=== PATIENT | male | born 1965 | race Caucasian/White ===

== ENCOUNTER 2017-10-24 17:15 | Emergency (ER) | payer MEDICARE, MEDICAID ==
[~2017-10-24] VITALS: Ht 170.2 cm; Wt 68.2 kg
[~2017-10-24 17:15] MED LIST: BENZ0.5T43 PO; LEVO750T21 PO; OLAN2.5T3 PO; OMEP10CA4 PO; QUET-1 PO; ZOL50T PO
[2017-10-24 17:19] VITALS: BP 122/68
[2017-10-24 18:23] LABS: BASOPHILS % (AUTO) 0.2 % (0-1); EOSINOPHILS # (AUTO) 0.1 X10'3 (0-0.9); EOSINOPHILS % (AUTO) 1.2 % (0-6); HEMATOCRIT 37.8 % (42.0-52.0); HEMOGLOBIN 12.7 g/dl (14.0-17.9); LYMPHOCYTES # (AUTO) 0.8 X10'3 (1.1-4.8); LYMPHOCYTES % (AUTO) 13.4 % (21-51); MEAN CORPUSCULAR HEMOGLOBIN 30.8 PG (27.0-31.0); MEAN CORPUSCULAR HGB CONC 33.6 % (33.0-36.5); MEAN CORPUSCULAR VOLUME 91.8 FL (78-98); MONOCYTES # (AUTO) 0.7 X10'3 (0-0.9); MONOCYTES % (AUTO) 11.3 % (2-12); NEUTROPHILS # (AUTO) 4.4 X10'3 (1.8-7.7); NEUTROPHILS % (AUTO) 73.9 % (42-75); PLATELET COUNT 250 X10'3 (140-440); RED BLOOD COUNT 4.11 X10'6 (4.70-6.10); RED CELL DISTRIBUTION WIDTH 13.7 % (11.5-14.5)
[2017-10-24 18:49] LABS: ALANINE AMINOTRANSFERASE 23 U/L (12-78); ALBUMIN 2.8 G/DL (3.4-5.0); ALBUMIN/GLOBULIN RATIO 0.8 (1.1-1.5); ALKALINE PHOSPHATASE 71 IU/L (46-116); ANION GAP 5 (8-16); ASPARTATE AMINO TRANSFERASE 26 U/L (10-37); BILIRUBIN,TOTAL 0.2 MG/DL (0.1-1.0); BLOOD UREA NITROGEN 14 MG/DL (7-18); BUN/CREATININE RATIO 17.5 (5.4-32.0); CHLORIDE 103 MMOL/L (99-107); ETHANOL < 0.010 GM/DL (0.0-0.010); GLUCOSE 141 MG/DL (70-104); POTASSIUM 3.8 MMOL/L (3.5-5.1); SODIUM 136 MMOL/L (135-145); TOTAL CARBON DIOXIDE 28.4 MMOL/L (24-32); TOTAL PROTEIN 6.3 G/DL (6.4-8.2); eGFR > 90 ML/MIN
== END 2017-10-24 19:43 | disposition left against medical advice (07) ==
LOC: ER 17:16
DX: F32.9 Major depressive disorder, single episode, unspecified (principal); F15.10 Other stimulant abuse, uncomplicated; F17.210 Nicotine dependence, cigarettes, uncomplicated; Z90.49 Acquired absence of other specified parts of digestive tract; Z93.3 Colostomy status; Z88.1 Allergy status to other antibiotic agents; Z88.8 Allergy status to other drugs, medicaments and biological substances; Z59.0 Homelessness
CPT/HCPCS: 36415; 80053; 80320; 84443; 85025; 99284

== ENCOUNTER 2017-11-22 11:53 | Inpatient (IN) | payer MEDICARE, MEDICAID ==
[~2017-11-22] VITALS: Ht 170.2 cm; Wt 67.8 kg
[2017-11-22] MEDS ORDERED: acetaminophen 325mg tablet PO PRN ×2 (12:40)
[2017-11-22] MEDS ORDERED: magnesium hydroxide 30ml (MOM) UD suspension PO PRN (12:40)
[2017-11-22] MEDS ORDERED: mag hydrox/Alum hydrox/simeth 30ml oral suspension PO PRN (12:40)
[2017-11-22] MEDS ORDERED: pneumococcal 23-VAL P-sac vacc 25 mcg/0.5ml vial IMVAC ONE (14:05)
[2017-11-22] MEDS ORDERED: FLU VACC QS2017-18 36MOS UP/PF 60 MCG/0.5 ML SYRINGE IMVAC ONE (14:10)
[2017-11-22 19:18] VITALS: BP 125/82
[2017-11-22] MEDS ORDERED: OLANZapine 5mg rapidly disint. tablet PO ONE (21:25)
[2017-11-22] MEDS ORDERED: LORazepam 1 MG tablet PO PRN (21:25)
[2017-11-22] MEDS ORDERED: OLANZapine 2.5MG tablet PO PRN (21:30)
[2017-11-23 07:04] VITALS: BP 120/82
[2017-11-23 09:17] LABS: CHOL/HDL RATIO 3.7 (0.00-4.99); CHOLESTEROL 146 MG/DL (0-200); HDL CHOLESTEROL 40 MG/DL (35-60); LDL CHOLESTEROL 89 MG/DL (50-100); TRIGLYCERIDES 133 MG/DL (20-135)
[2017-11-23 09:19] LABS: HEMOGLOBIN A1C 5.7 % (4.5-6.2)
[2017-11-23] MEDS ORDERED: nicotine 7mg patch - 24hr TD ONE (09:25)
[2017-11-23] MEDS ORDERED: sertraline 50mg tablet PO ONE (13:55)
[2017-11-23 20:00] VITALS: BP 126/72
[2017-11-23] MEDS ORDERED: OLANZapine 2.5MG tablet PO SCH (21:00)
[2017-11-24] MEDS ORDERED: nicotine 7mg patch - 24hr TD SCH (08:00)
[2017-11-24] MEDS ORDERED: sertraline 25mg tablet PO SCH (08:00)
[2017-11-24 08:06] VITALS: BP 118/85
== END 2017-11-24 10:20 | disposition left against medical advice (07) | DRG 885 ==
LOC: ADULT MH 12:10
PROVIDERS: ADMIT Psychiatry & Neurology Psychiatry; ATTEND Psychiatry & Neurology Psychiatry
DX: F33.2 Major depressive disorder, recurrent severe without psychotic features (principal); R45.851 Suicidal ideations; E11.9 Type 2 diabetes mellitus without complications; Z53.21 Procedure and treatment not carried out due to patient leaving prior to being seen by health care provider; I10 Essential (primary) hypertension; F15.988 Other stimulant use, unspecified with other stimulant-induced disorder; K21.9 Gastro-esophageal reflux disease without esophagitis; F17.210 Nicotine dependence, cigarettes, uncomplicated; Z59.0 Homelessness; Z93.2 Ileostomy status; Z90.49 Acquired absence of other specified parts of digestive tract; Z88.1 Allergy status to other antibiotic agents; Z88.8 Allergy status to other drugs, medicaments and biological substances; Z79.899 Other long term (current) drug therapy; Z87.440 Personal history of urinary (tract) infections; Z83.3 Family history of diabetes mellitus; Z82.49 Family history of ischemic heart disease and other diseases of the circulatory system; Z71.6 Tobacco abuse counseling
CPT/HCPCS: 36415; 80061; 83036; 87070; 90732; Q2037

== ENCOUNTER 2017-11-25 19:02 | Emergency (ER) | payer MEDICARE, MEDICAID ==
[~2017-11-25] VITALS: Ht 170.2 cm; Wt 71.5 kg
[2017-11-25 19:42] VITALS: BP 121/86
== END 2017-11-25 19:40 | disposition home or self-care (01) ==
LOC: ER 19:02
DX: Z43.3 Encounter for attention to colostomy (principal)
CPT/HCPCS: 99281

== ENCOUNTER 2018-05-14 12:58 | Emergency (ER) | payer MEDICARE, MEDICAID ==
[2018-05-14 13:24] VITALS: BP 128/87
== END 2018-05-14 13:29 | disposition home or self-care (01) ==
LOC: ER 12:58
DX: Z02.89 Encounter for other administrative examinations (principal); F15.90 Other stimulant use, unspecified, uncomplicated; Z90.49 Acquired absence of other specified parts of digestive tract; Z93.3 Colostomy status; Z88.1 Allergy status to other antibiotic agents; Z88.8 Allergy status to other drugs, medicaments and biological substances
CPT/HCPCS: 99281

== ENCOUNTER 2018-05-17 09:48 | Emergency (ER) | payer MEDICARE, MEDICAID ==
[~2018-05-17] VITALS: Ht 4311.5 cm; Wt 72.7 kg
[2018-05-17 11:05] LABS: BASOPHILS % (AUTO) 0 % (0-1); EOSINOPHILS # (AUTO) 0.1 X10'3 (0-0.9); EOSINOPHILS % (AUTO) 0.7 % (0-6); HEMATOCRIT 43.9 % (42.0-52.0); HEMOGLOBIN 14.9 g/dl (14.0-17.9); LYMPHOCYTES # (AUTO) 0.7 X10'3 (1.1-4.8); LYMPHOCYTES % (AUTO) 6.5 % (21-51); MEAN CORPUSCULAR HEMOGLOBIN 30.6 PG (27.0-31.0); MEAN CORPUSCULAR HGB CONC 33.9 % (33.0-36.5); MEAN CORPUSCULAR VOLUME 90.2 FL (78-98); MEAN PLATELET VOLUME 8.4 FL (7.4-10.4); MONOCYTES # (AUTO) 0.9 X10'3 (0-0.9); MONOCYTES % (AUTO) 9.1 % (2-12); NEUTROPHILS # (AUTO) 8.7 X10'3 (1.8-7.7); NEUTROPHILS % (AUTO) 83.7 % (42-75); PLATELET COUNT 238 X10'3 (140-440); RED BLOOD COUNT 4.86 X10'6 (4.70-6.10); RED CELL DISTRIBUTION WIDTH 15.5 % (11.5-14.5); WHITE BLOOD COUNT 10.4 X10'3 (4.5-11.0)
[2018-05-17 11:14] LABS: URINE AMPHETAMINE SCREEN NEGATIVE (Neg); URINE BARBITUATE SCREEN NEGATIVE (Neg); URINE BENZODIAZEPINES SCREEN NEGATIVE (Neg); URINE CANNABINOID SCREEN NEGATIVE (Neg); URINE COCAINE SCREEN NEGATIVE (Neg); URINE METHADONE SCREEN NEGATIVE (Neg); URINE OPIATE SCREEN NEGATIVE (Neg); URINE PHENCYCLIDINE SCREEN NEGATIVE (Neg)
[2018-05-17 11:21] LABS: ALANINE AMINOTRANSFERASE 16 U/L (12-78); ALBUMIN 3.2 G/DL (3.4-5.0); ALBUMIN/GLOBULIN RATIO 0.8 (1.1-1.5); ALKALINE PHOSPHATASE 68 IU/L (46-116); ANION GAP 8 (8-16); ASPARTATE AMINO TRANSFERASE 16 U/L (10-37); BILIRUBIN,TOTAL 0.3 MG/DL (0.1-1.0); BLOOD UREA NITROGEN 18 MG/DL (7-18); BUN/CREATININE RATIO 19.8 (5.4-32.0); CALCIUM 9.9 MG/DL (8.5-10.1); CHLORIDE 101 MMOL/L (99-107); CREATININE 0.91 MG/DL (0.60-1.10); ETHANOL < 0.010 GM/DL (0.0-0.010); GLUCOSE 130 MG/DL (70-104); POTASSIUM 4.3 MMOL/L (3.5-5.1); SODIUM 138 MMOL/L (135-145); TOTAL CARBON DIOXIDE 29.5 MMOL/L (24-32); eGFR 88 ML/MIN
[2018-05-17] MEDS: OLANZapine **IM** 10 mg inj. IM PRN (15:59)
[2018-05-17] MEDS: OLANZapine 2.5MG tablet PO SCH (20:27)
[2018-05-18] MEDS: OLANZapine **IM** 10 mg inj. IM PRN (04:37)
[2018-05-18] MEDS: OLANZapine 2.5MG tablet PO SCH ×2 (08:46→19:57)
[2018-05-19] MEDS ORDERED: OLANZapine 2.5MG tablet PO PRN ×2 (08:00→08:05)
[2018-05-19] MEDS: OLANZapine 2.5MG tablet PO SCH ×2 (08:12→20:00)
[2018-05-19] MEDS ORDERED: LORazepam 1 MG tablet PO ONE (10:20)
[2018-05-19] MEDS ORDERED: LORazepam 2 mg/ml vial IM ONE (22:05)
[2018-05-19] MEDS ORDERED: haloperidol lactate 5mg/ml inj IM ONE (22:05)
[2018-05-20] MEDS: OLANZapine 2.5MG tablet PO SCH (08:00)
[2018-05-20 17:44] VITALS: BP 117/72
== END 2018-05-20 18:41 ==
LOC: ER 09:48
DX: F31.9 Bipolar disorder, unspecified (principal); R45.851 Suicidal ideations; F15.90 Other stimulant use, unspecified, uncomplicated; Z88.1 Allergy status to other antibiotic agents; Z88.8 Allergy status to other drugs, medicaments and biological substances; Z90.49 Acquired absence of other specified parts of digestive tract
CPT/HCPCS: 36415; 80053; 80305; 80320; 85025; 96372; 99285

== ENCOUNTER 2021-01-26 11:38 | Emergency (ER) | payer MEDICARE, MEDICAID ==
[~2021-01-26] VITALS: Ht 170.2 cm; Wt 66.8 kg
[2021-01-26 11:41] VITALS: BP 113/71
--- NOTE | 2021-01-26 14:45 | NUR ---
pt given colostomy bag, assist pt with changing. Pt given a change of clothes due to stool on his clothes. Pt also given an extra bag for home.
== END 2021-01-26 14:52 | disposition home or self-care (01) ==
LOC: ER 11:39
DX: K94.00 Colostomy complication, unspecified (principal); M79.674 Pain in right toe(s); F15.90 Other stimulant use, unspecified, uncomplicated; F17.210 Nicotine dependence, cigarettes, uncomplicated; Z98.890 Other specified postprocedural states; Z88.1 Allergy status to other antibiotic agents; Z88.8 Allergy status to other drugs, medicaments and biological substances
CPT/HCPCS: 99281